=== PATIENT | male | born 1995 | race Two or more races ===

== ENCOUNTER 2024-02-11 21:29 | Emergency (ER) | payer OTHER ==
[~2024-02-11] VITALS: Ht 175.3 cm; Wt 63.5 kg
[2024-02-11] MEDS ORDERED: METHYLPREDNISOLONE SOD SUCC 40 MG VIAL IM ONE (22:15)
[2024-02-11] MEDS ORDERED: MEDROLPACK PO (22:15)
[2024-02-11] MEDS ORDERED: AZITHROMYCIN500 MG PO (22:15)
[2024-02-11] MEDS ORDERED: PEPCID AC20 MG PO (22:17)
== END 2024-02-11 23:27 | disposition home or self-care (01) ==
LOC: ER 21:31
DX: J02.9 Acute pharyngitis, unspecified (principal); G43.109 Migraine with aura, not intractable, without status migrainosus